=== PATIENT | female | born 2000 | race Caucasian/White ===

== ENCOUNTER 2019-08-29 12:22 | Emergency (ER) | payer BC, OTHER ==
--- NOTE | 2019-08-29 13:20 | EDM.PDOC ---
ED HPI GENERAL MEDICAL PROBLEM - General Chief Complaint: ENT Problem Stated Complaint: SORE THROAT Time Seen by Provider: 08/29/19 13:21 Source of Information: Reports: Patient History Limitations: Reports: No Limitations - History of Present Illness INITIAL COMMENTS - FREE TEXT/NARRATIVE: pt has a sore throatbut no fever. She is not coughing. Onset: Today Duration: Hour(s): Location: Reports: Neck Associated Symptoms: Reports: Other ( body aches) - Related Data Allergies Allergy/AdvReac Type Severity Reaction Status Date / Time amoxicillin Allergy Rash Verified 08/29/19 13:18 Home Meds: Home Meds NK [No Known Home Meds] 08/29/19 [History] ED ROS ENT - Review of Systems Review Of Systems: See Below Constitutional: Reports: Fatigue, Decreased Appetite HEENT: Reports: Throat Pain Respiratory: Reports: No Symptoms Cardiovascular: Reports: No Symptoms Endocrine: Reports: No Symptoms GI/Abdominal: Reports: No Symptoms : Reports: No Symptoms Musculoskeletal: Reports: No Symptoms Skin: Reports: No Symptoms Neurological: Reports: No Symptoms ED EXAM, ENT - Physical Exam Exam: See Below Text/Narrative:: pt arrived with a sore throat. [facility] employer at [facility] [employer] is concerned about covid. She is not able to return to work unil her covid is back. Exam Limited By: No Limitations General Appearance: Alert, Anxious, Moderate Distress Ears: Normal TMs Nose: Normal Inspection Mouth/Throat: Throat Pain, Throat Swelling Head: Atraumatic Neck: Normal Inspection Respiratory/Chest: No Respiratory Distress Course - Vital Signs Last Recorded V/S: Last Vital Signs Temp 36.7 C 08/29/19 13:11 Pulse 65 08/29/19 13:11 Resp 14 08/29/19 13:11 BP 121/64 08/29/19 13:11 Pulse Ox 98 08/29/19 13:11 - Orders/Labs/Meds Orders: Active Orders 24 hr Category Date Time Status CORONAVIRUS COVID-19, BLANQUITA Stat Lab 08/29/19 14:59 Ordered CULTURE STREP A CONFIRMATION [RM] Stat Lab 08/29/19 13:25 Results STREP SCRN A RAPID W CULT CONF [RM] Stat Lab 08/29/19 13:25 Results Labs: Laboratory Tests 08/29/19 08/29/19 Range/Units 13:25 13:45 WBC 5.0 (4.5-11.0) K/uL RBC 4.48 (3.30-5.50) M/uL Hgb 13.6 (12.0-15.0) g/dL Hct 41.7 (36.0-48.0) % MCV 93 (80-98) fL MCH 30 (27-31) pg MCHC 33 (32-36) % Plt Count 259 (150-400) K/uL Neut % (Auto) 50 (36-66) % Lymph % (Auto) 33 (24-44) % Peach % (Auto) 16 H (2-6) % Eos % (Auto) 0 L (2-4) % Baso % (Auto) 0 (0-1) % Monoscreen Negative (NEGATIVE) - Re-Assessments/Exams Free Text/Narrative Re-Assessment/Exam: 08/29/19 15:06 pt had a neg strept, wbc is normal, her mono is neg. Departure - Departure Time of Disposition: 15:06 Disposition: Home, Self-Care 01 Condition: Fair Clinical Impression: Viral illness - Discharge Information Referrals: PCP,None [Primary Care Provider] - Forms: ED Department Discharge Care Plan Goals: push fluids, tylenol and motrin for discomfort. Covid test is pending This should return sat-saturday. of next week. Sepsis Event Note (ED) - Evaluation Sepsis Screening Result: No Definite Risk - Focused Exam Vital Signs: Vital Signs Temp Pulse Resp BP Pulse Ox 08/29/19 13:11 36.7 C 65 14 121/64 98 08/29/19 13:10 36.7 C 65 14 121/64 98 - My Orders Last 24 Hours: My Active Orders 08/29/19 13:25 CULTURE STREP A CONFIRMATION [RM] Stat STREP SCRN A RAPID W CULT CONF [RM] Stat 08/29/19 14:59 CORONAVIRUS COVID-19, BLANQUITA Stat - Assessment/Plan Last 24 Hours: My Active Orders 08/29/19 13:25 CULTURE STREP A CONFIRMATION [RM] Stat STREP SCRN A RAPID W CULT CONF [RM] Stat 08/29/19 14:59 CORONAVIRUS COVID-19, BLANQUITA Stat
== END 2019-08-29 15:25 | disposition home or self-care (01) ==
LOC: JP.ED 12:22
DX: B34.9 Viral infection, unspecified (principal); Z20.828 Contact with and (suspected) exposure to other viral communicable diseases; Z88.1 Allergy status to other antibiotic agents
CPT/HCPCS: 36415; 85025; 86308; 87081; 87880-QW; 99283; U0002